=== PATIENT | male | born 1945 | race Hispanic/Latino ===

== ENCOUNTER 2018-04-15 02:58 | Observation (INO) | payer MEDICARE ==
[2018-04-15] VITALS (8 sets, daily range): BP systolic 113–144; BP diastolic 59–82
[~2018-04-15] VITALS: Ht 180.3 cm; Wt 77.6 kg
[~2018-04-15 02:58] MED LIST: ASPIR-LOW81 MG PO; ATORVASTATIN CA20 MG PO; Aspirin PO; LOPRESSOR25 MG PO; PANTOPRAZOLE SO40 MG PO; PEPCID20 MG PO; TYLENOL WITH C1 EACH PO
--- OUTSIDE RECORDS SUMMARY | 2018-04-15 02:59 | XMS REPORT ---
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 Allergies, Adverse Reactions, Alerts This patient has no known allergies or adverse reactions. Medications This patient has no known medications. Results Test Description Test Time Test Comments Text Results Atomic Results Result Comments CHEST [address] [facility] [address] [id number] Patient Name: MITZI GUERRIER MR #: [id number] : 1945 Age/Sex: 71/M Req #: [id number] Adm Physician: OCTAVIO FINN MD Ordered by: ZINA KONG MD Report #: [id number] Location: [facility] Room/Bed: [place] [address] Procedure: [id number] DX/CHEST 2 VIEWS Exam Date: 01/05/17 Exam Time: 1445 REPORT STATUS: Signed PROCEDURE: Frontal and lateral views of the chest. COMPARISON: None. INDICATIONS: CHEST PAIN FINDINGS: Lines/tubes: None. Lungs: The lungs are well inflated. Calcified granulomata in each lung appear stable. There is stable eventration of the left diaphragm with overlying discoid atelectasis. There is no evidence of pneumonia or pulmonary edema. Pleura: There is no pleural effusion or pneumothorax. Heart and mediastinum: The heart and the mediastinum are normal. Bones: No acute bony abnormality. Median sternotomy wires are intact. IMPRESSION: 1. Stable chest. No active disease. Dictated by: Vasu Chino M.D. on 01/05/2017 at 15:26 Electronically approved by: Vasu Chino M.D. on 01/05/2017 at 15:26 Dictated By: VASU CHINO MD [id number] Transcribed By: DALY on 01/05/17 1526 COPY TO: ZINA KONG MD
[2018-04-15] MEDS ORDERED: PANTOPRAZOLE 40 MG 10ML VIAL IV STA (03:13)
[2018-04-15] MEDS ORDERED: ASPIRIN 81 MG CHEW TAB PO ONE (03:15)
[2018-04-15 03:23] LABS: BASOPHILS # (AUTO) 0.1 (0.0-0.1); BASOPHILS % 1.6 % (0.0-1.0); EOSINOPHILS # (AUTO) 0.3 (0.0-0.4); HEMATOCRIT 40.5 % (38.2-49.6); HEMOGLOBIN 12.7 g/dL (14.0-18.0); LYMPHOCYTES # (AUTO) 2.2 (1.0-3.2); LYMPHOCYTES % 26.2 % (18.0-39.1); MEAN CORPUSCULAR HEMOGLOBIN 21.5 pg (28-32); MEAN CORPUSCULAR HGB CONC 31.4 g/dL (31-35); MEAN CORPUSCULAR VOLUME 68.6 fL (81-99); MONOCYTES # (AUTO) 1.1 (0.2-0.8); MONOCYTES % 13.3 % (4.4-11.3); NEUTROPHILS # (AUTO) 4.5 (2.1-6.9); NEUTROPHILS % 54.7 % (38.7-80.0); PLATELET COUNT 198 x10e3/uL (140-360); RED CELL DISTRIBUTION WIDTH 21.9 % (11.7-14.4)
[2018-04-15 03:31] LABS: INR 0.95; PROTHROMBIN TIME 13.6 seconds (11.9-14.5)
[2018-04-15 03:32] LABS: PARTIAL THROMBOPLASTIN TIME 28.3 seconds (23.8-35.5)
[2018-04-15 03:35] LABS: CLARITY,URINE CLEAR (CLEAR); COLOR,URINE YELLOW (YELLOW); KETONES,URINE NEGATIVE (NEGATIVE); LEUKOCYTE ESTERASE ,URINE NEGATIVE (NEGATIVE); NITRITE,URINE NEGATIVE (NEGATIVE); PROTEIN,URINE DIPSTICK NEGATIVE (NEGATIVE); URINE UROBILINOGEN 0.2 mg/dL (0.2 - 1)
[2018-04-15 03:36] LABS: BILIRUBIN,URINE NEGATIVE (NEGATIVE); EPITHELIAL CELLS,URINE FEW /LPF; RBC,URINE 0-5 /HPF (0-5); WBC,URINE (MAN) 0-5 /HPF (0-5)
[2018-04-15 03:39] LABS: ALANINE AMINOTRANSFERASE 37 IU/L (0-55); ALBUMIN 3.8 g/dL (3.5-5.0); ALBUMIN/GLOBULIN RATIO 0.8 (0.8-2.0); ALKALINE PHOSPHATASE 87 IU/L (40-150); AMYLASE 55 U/L (25-125); ANION GAP 17.7 mmol/L (8-16); BLOOD UREA NITROGEN 6 mg/dL (7-26); BUN/CREATININE RATIO 8 (6-25); CALCIUM 9.6 mg/dL (8.4-10.2); CARBON DIOXIDE 20 mmol/L (22-29); CHLORIDE 101 mmol/L (98-107); CREATINE KINASE 76 IU/L (30-200); CREATININE, SERUM 0.79 mg/dL (0.72-1.25); EST GLOMERULAR FILTRATION RATE > 60 ML/MIN (60-); GLUCOSE 90 mg/dL (74-118); LIPASE 114 U/L (8-78); POTASSIUM 3.7 mmol/L (3.5-5.1); SODIUM 135 mmol/L (136-145)
[2018-04-15] MEDS ORDERED: ONDANSETRON HCL INJ 2 MG/ML VIAL IV STA (04:04)
[2018-04-15] MEDS ORDERED: ONDANSETRON HCL INJ 2 MG/ML VIAL ONE (04:06)
[2018-04-15] MEDS ORDERED: HYDROMORPHONE 2MG/ML 2 MG/ML ML ONE ×2 (04:09→09:09)
[2018-04-15] MEDS ORDERED: SODIUM CHLORIDE 0.9% 1000ML 1,000 ML IV ONE (04:15)
[2018-04-15] MEDS ORDERED: HYDROMORPHONE 1MG/1ML INJ IV ONE (04:15)
[2018-04-15] MEDS ORDERED: SODIUM CHLORIDE 0.9% 1000ML 1,000 ML IV SCH (04:17)
--- NOTE | 2018-04-15 04:21 | Diagnostic Imaging Report ---
EXAM: CHEST SINGLE (PORTABLE), AP 1 view INDICATION: Left-sided chest pain COMPARISON: January 05, 2017 FINDINGS: LINES/TUBES: None LUNGS: Bibasilar atelectasis. PLEURA: No effusions or pneumothorax. HEART AND MEDIASTINUM: Normal size and contour. BONES AND SOFT TISSUES: No acute findings. Median sternotomy wires. IMPRESSION: Bibasilar atelectasis. Signed by: Dr. Mimi Batista M.D. on 04/15/2018 4:17 AM
[2018-04-15] MEDS ORDERED: ATORVASTATIN CA20 MG PO (04:22)
[2018-04-15] MEDS ORDERED: HYDROMORPHONE 1MG/1ML INJ IV PRN (04:30)
[2018-04-15] MEDS ORDERED: ONDANSETRON HCL INJ 2 MG/ML VIAL IV PRN (04:30)
[2018-04-15] MEDS ORDERED: CHLORDIAZEPOXIDE HCL 25 MG CAP PO PRN (04:45)
[2018-04-15] MEDS ORDERED: HYDROMORPHONE 2MG/ML 2 MG/ML ML IV PRN ×2 (08:30→08:45)
[2018-04-15] MEDS ORDERED: ASPIRIN 81 MG ENTERIC COATED PO SCH (09:00)
[2018-04-15] MEDS: HYDROMORPHONE 2MG/ML 2 MG/ML ML IV PRN ×2 (09:15→20:50)
[2018-04-15] MEDS: PANTOPRAZOLE 40 MG 10ML VIAL IV SCH (09:15)
--- NOTE | 2018-04-15 09:17 | Diagnostic Imaging Report ---
PROCEDURE:ABDOMINAL ULTRASOUND COMPARISON:None. INDICATIONS:EVAL FOR GALLSTONE, PANCREATITIS FINDINGS: Somewhat limited evaluation due to overlying bowel gas. Liver: Measures 15.7 cm. Increased hepatic parenchymal echogenicity. No focal mass. Main portal vein: Measures 0.8 cm. Hepatopetal flow. Gallbladder: Unremarkable appearance. No evidence of stone, wall thickening, distension, or pericholecystic fluid. Common Bile Duct: Measures 0.3 cm. No echogenic filling defect. Sonographic Gasca's sign: Negative. Right kidney: Measures 10.2 cm. No solid or cystic mass, echogenic calculi, or hydronephrosis. Normal parenchymal echogenicity. Left kidney: Measures 9.6 cm. No solid or cystic mass, echogenic calculi, or hydronephrosis. Normal parenchymal echogenicity. Spleen: Measures 8.3 cm. Pancreas: Limited visualization due to overlying bowel gas. Inferior vena cava: Limited visualization due to overlying bowel gas. Aorta: Limited visualization due to overlying bowel gas. Ascites: None. CONCLUSION: Somewhat limited evaluation due to overlying bowel gas. Hepatic steatosis. No sonographic evidence of cholecystitis. Dictated by: REJI CANCHOLA M.D. on 04/15/2018 at 9:27 Electronically approved by: REJI CANCHOLA M.D. on 04/15/2018 at 9:27
[2018-04-15 09:31] LABS: CREATINE KINASE 54 IU/L (30-200)
--- NOTE | 2018-04-15 10:50 | Diagnostic Imaging Report ---
PROCEDURE: CT ABDOMEN AND PELVIS WITH CONTRAST TECHNIQUE: The abdomen and pelvis were scanned utilizing a multidetector helical scanner from the diaphragm to the lesser trochanter after the IV administration of 100 cc of Isovue 370 and the oral administration of water. Coronal and sagittal multiplanar reformations were obtained. COMPARISON: CTA Abdomen/Pelvis 10/06/15 (report available but the images were not available for review at the time of this dictation); Abdominal ultrasound 04/15/18. INDICATIONS: EPIGASTRIC PAIN FINDINGS: LOWER THORAX: Patchy multifocal atelectatic changes. Small cysts at the lung bases. Patchy consolidative opacity in the left lower lobe. Extensive coronary atherosclerosis. Epicardial pacer leads are partially seen. Calcified pleural plaques. Diffuse opacities limit evaluation for lung nodules. HEPATOBILIARY: Mild diffuse fatty liver. Subcentimeter left hepatic lobe hypo densities are too small to characterize but likely represent cysts. No biliary ductal dilatation. SPLEEN: No splenomegaly. PANCREAS: No focal masses or ductal dilatation. ADRENALS: No adrenal nodules. KIDNEYS/URETERS: No hydronephrosis, stones, or solid mass lesions. A 9 mm left upper pole hypodensity and additional left punctate renal hypodensity are too small to characterize, but likely represent cysts. PELVIC ORGANS/BLADDER: Prostate is enlarged measuring up to 4.8 cm. PERITONEUM / RETROPERITONEUM: Small amount of pelvic ascites. No free air. LYMPH NODES: VESSELS: Extensive atherosclerotic changes of the abdominal aorta and branch vessels. GI TRACT: No distention or wall thickening. Normal appendix. Mildly prominent mid small bowel loops measuring up to 2.9 cm without specific evidence of bowel obstruction. BONES AND SOFT TISSUES: Degenerative changes of the visualized spine without evidence of acute bony abnormality. Bilateral pars defects at L5 with minimal anterolisthesis of L5 on S1. IMPRESSION: Mild fatty liver. Mildly prominent small bowel loops in the lower abdomen measuring up to 2.9 cm without specific evidence of bowel obstruction. Small amount of pelvic ascites. Dictated by: REJI CANCHOLA M.D. on 04/15/2018 at 11:00 Electronically approved by: REJI CANCHOLA M.D. on 04/15/2018 at 11:00
[2018-04-15] MEDS: METOPROLOL TARTRATE 25 MG TAB PO SCH (16:24)
[2018-04-15] MEDS: PANTOPRAZOLE SOD 40 MG TABEC PO SCH (16:24)
[2018-04-15] MEDS: DONNATAL/LIDOCAINE/MAALOX 30 ML SUSP PO PRN ×2 (16:25→20:35)
[2018-04-15] MEDS: SUCRALFATE 1 GM/10 ML SUSP NG SCH ×2 (16:25→20:35)
--- NOTE | 2018-04-15 16:38 | History and Physical ---
CHIEF COMPLAINT: Abdominal pain. HISTORY OF PRESENT ILLNESS: This is a 73-year-old male with known chronic alcohol abuse who, of note, was here back in December 2016. He also has a past medical history of hypertension, anxiety, acid reflux and gastric ulcers, and esophagitis who presents with complaints of abdominal pain and questionable chest pain. Patient was seen and evaluated at bedside on the medical floor. Currently, he is complaining of epigastric abdominal pain. Imaging studies were found to be negative. His troponins were negative. Patient likely has underlying gastritis. He reports more of a stabbing, sharp sensation around his incision where he had a CABG several years ago. Patient denies any hallucinations, visual or auditory. The patient is currently doing well with no other complaints. REVIEW OF SYSTEMS: Pertinent positives are epigastric abdominal pain, atypical chest pain. Pertinent negatives: Denies any palpitations, nausea or pertinent positive epigastric abdominal pain atypical chest x-ray negative. Denies any palpitations, nausea, vomiting, diarrhea, dysuria, hematuria, frequency, urgency, lightheadedness, dizziness, headaches, shortness of breath, cough, congestion, fever or any other complaints. The rest of the 14-point review of systems have been reviewed with the patient and are negative. ALLERGIES: NO KNOWN DRUG ALLERGIES. HOME MEDICATIONS: 1. Tylenol No. 3with codeine 1 tablet q.8 h. as needed for pain. 2. Aspirin 81mg daily. 3. Lipitor 40 mg daily. 4. Pepcid 20 mg b.i.d. 5. Metoprolol 25 mg b.i.d. 6. Protonix 40 mg daily. PAST MEDICAL HISTORY: Chronic alcohol abuse, anxiety, gastritis, hyperlipidemia, esophagitis, hypertension, CAD. PAST SURGICAL HISTORY: Umbilical hernia repair, open heart surgery. FAMILY HISTORY: Hypertension and diabetes. SOCIAL HISTORY: He is a drinker of 6 pack of beer per day. He is a smoker for 20% years. VITAL SIGNS: Temperature 97.8, pulse 93, respiratory rate 18, blood pressure 121/66. LABORATORY DATA: Labs shows white count 8.3, hemoglobin 12.7, hematocrit 40, platelets 198,000. Coagulation: PT 13, INR 0.95, PTT 28. Chemistry: Sodium 135, potassium 3.7, chloride 101, bicarb 20, anion gap 17, BUN 6, creatinine 0.79. Glucose 90, calcium 9.6, total bilirubin 0.78, AST 48, ALT 37, CK 76. CK-MB is 1.6. Troponin negative times 2. ____ is 0.3. Albumin 2.8. Lipase is 114, amylase 55. Urinalysis found to be negative. MICROBIOLOGY: None. IMAGING: Chest x-ray was negative. Abdominal ultrasound showed evidence of hepatic steatosis, but no evidence of cholecystitis and abdominal CT of the abdomen and pelvis shows mildly prominent small bowel lesions in the lower abdomen measuring up to 2.9 cm without specific evidence of bowel obstruction. Small amount of pelvis ascites. Mild fatty liver. PHYSICAL EXAMINATION: GENERAL: In no acute distress, alert and oriented x3, cooperative on examination. HEENT: Head is normocephalic, atraumatic. Eyes: Pupils equal, round and reactive to light bilaterally. Extraocular movements intact bilaterally. Throat with no evidence of erythema or exudates in the posterior pharynx. Has poor dentition. NECK: Supple with good range of motion. PULMONARY: Clear to auscultation bilaterally. No wheezing, no rales, no rhonchi or crackles appreciated. CARDIOVASCULAR: Positive S1 and S2, no murmurs, rubs or gallops appreciated. ABDOMEN: Soft, nondistended, nontender on palpation. Bowel sounds were present. MUSCULOSKELETAL: Strength 5/5 throughout, no evidence of musculoskeletal deficit on exam. No weakness appreciated. NEUROLOGIC: Cranial nerves II-XII grossly intact. No evidence of neurological deficit on examination. SKIN: Intact. Warm to touch. Good capillary refill. EXTREMITIES: No edema. Good range of motion throughout. PSYCHIATRIC: Normal affect and mood. IMPRESSION 1. Epigastric abdominal pain likely secondary to chronic alcohol abuse leading to esophagitis and gastritis. 2. Chronic alcohol abuse. 3. Hypertension. 4. History of CABG with coronary artery bypass graft in the past. 5. Anemia. 6. Hyperlipidemia. PLAN: At this time his troponins are negative. EKG showed no acute findings. It is likely that the patient has epigastric abdominal pain due to his chronic alcohol abuse leading to underlying gastritis and esophagitis. On reviewing his EKG, there are similar findings and there is nothing acute based on his EKG. No alarms on cardiac telemetry. This is unlikely to be cardiac in its nature, atypical in nature. At this time, will give him some GI cocktail, some Protonix and Carafate for his underlying epigastric pain. Imaging studies were found to be negative including right upper quadrant ultrasound and CT of the abdomen and pelvis. His labs seem to be normal. Will continue with same plan of care. Repeat labs in the morning. I will go ahead and discontinue the IV fluids. Continue with regular diet. If he is stable, doing well, will likely discharge home tomorrow. Otherwise, he should be ready to go home tomorrow with no issues. Patient will be placed on observation, and will change it from inpatient. Job#: [id number] PRATEEK
--- NOTE | 2018-04-15 17:01 | Consultation ---
DATE OF CONSULTATION: April 15, 2018 CARDIOLOGY CONSULTATION REASON FOR CONSULTATION: Chest pain. HISTORY OF PRESENT ILLNESS: This is a 73-year-old man with history of coronary artery disease status post aortocoronary bypass, hypertension, alcohol use, gastritis, chronic dyspepsia, hiatal hernia and hyperlipidemia who presented to the emergency department with chest and epigastric pain. The patient denies any exertional symptoms. The symptoms can be moderate in intensity, worse with movement and palpation of the abdomen. The patient has had prior stress test and echocardiogram, which were within normal limits. He, otherwise, is asymptomatic from a cardiovascular standpoint. REVIEW OF SYSTEMS: A 12-point review of systems was conducted and was negative other than that in the HPI. PAST MEDICAL HISTORY: As stated above in the HPI. PAST SURGICAL HISTORY: Aortocoronary bypass. FAMILY HISTORY: No premature coronary artery disease or sudden cardiac . SOCIAL HISTORY: Current drinker. ALLERGIES: NO KNOWN DRUG ALLERGIES. MEDICATIONS: See medication reconciliation form. PHYSICAL EXAMINATION VITAL SIGNS: Temperature 97.8, heart rate 96, respirations 20, blood pressure 121/66, oxygen saturation 98% on room air. GENERAL: He is an elderly man lying in bed. HEAD: Normocephalic and atraumatic. EYES: The extraocular muscles are intact. Conjunctivae are clear. NECK: No JVD. No bruits. CARDIOVASCULAR: Regular rate and rhythm. No murmurs. LUNGS: Clear to auscultation. ABDOMEN: Soft. Tender to palpation. EXTREMITIES: No edema. VASCULAR: Diminished pulses. SKIN: Warm, dry and intact. NEUROLOGIC: No focal deficits noted. LABORATORY DATA: All reviewed and notable for white blood cell count of 8, hemoglobin 12.7, creatinine 0.79. Troponins are negative times [address] is [address] of the abdomen shows mildly prominent small-bowel loops, small amount of pelvic ascites, mild fatty liver. IMPRESSION AND RECOMMENDATIONS: Precordial pain. The patient has ruled out for acute myocardial infarction with normal cardiac enzymes. His symptoms are reproducible on examination and are more epigastric. The patient likely has pancreatitis with mildly elevated lipase. Would treat his gastritis as well. The patient's recent stress test and echocardiogram were within normal limits at our facility. The patient will need further testing; however, this can be done as an outpatient. Thank you for the consultation. ZANA RED D.O. Job#: [id number] AMANDEEP
[2018-04-15 18:08] LABS: CREATINE KINASE MB 1.5 ng/mL (0-5.0)
[2018-04-15] MEDS ORDERED: SODIUM CHLORIDE 0.9% 50ML 50 ML ONE (20:42)
[2018-04-15] MEDS ORDERED: IOPAMIDOL 370 MG/ML 200 ML INFUS..BTL INJ ONE (20:42)
[2018-04-15] MEDS ORDERED: ATORVASTATIN 40 MG TAB PO SCH (21:00)
[2018-04-15] MEDS ORDERED: ATORVASTATIN 20 MG TAB PO SCH (21:00)
[2018-04-16] VITALS: BP 118/59
[2018-04-16] MEDS: METOPROLOL TARTRATE 25 MG TAB PO SCH (03:51)
[2018-04-16 04:00] VITALS: BP 103/58
[2018-04-16 05:37] LABS: BASOPHILS # (AUTO) 0.1 (0.0-0.1); BASOPHILS % 1.6 % (0.0-1.0); EOSINOPHILS # (AUTO) 0.2 (0.0-0.4); EOSINOPHILS % 3.3 % (0.0-6.0); HEMATOCRIT 32.8 % (38.2-49.6); HEMOGLOBIN 10.1 g/dL (14.0-18.0); LYMPHOCYTES # (AUTO) 1.1 (1.0-3.2); LYMPHOCYTES % 23.3 % (18.0-39.1); MEAN CORPUSCULAR HEMOGLOBIN 21.5 pg (28-32); MEAN CORPUSCULAR HGB CONC 30.8 g/dL (31-35); MEAN CORPUSCULAR VOLUME 69.9 fL (81-99); MONOCYTES # (AUTO) 0.9 (0.2-0.8); NEUTROPHILS # (AUTO) 2.6 (2.1-6.9); NEUTROPHILS % 53.6 % (38.7-80.0); PLATELET COUNT 166 x10e3/uL (140-360); RED BLOOD COUNT 4.69 x10e6/uL (4.3-5.7); RED CELL DISTRIBUTION WIDTH 21.4 % (11.7-14.4)
[2018-04-16 05:58] LABS: ALANINE AMINOTRANSFERASE 23 IU/L (0-55); ALBUMIN 2.8 g/dL (3.5-5.0); ALBUMIN/GLOBULIN RATIO 0.9 (0.8-2.0); ALKALINE PHOSPHATASE 65 IU/L (40-150); AMYLASE 33 U/L (25-125); ANION GAP 9.5 mmol/L (8-16); BLOOD UREA NITROGEN 7 mg/dL (7-26); BUN/CREATININE RATIO 9 (6-25); CALCIUM 8.3 mg/dL (8.4-10.2); CARBON DIOXIDE 27 mmol/L (22-29); CHLORIDE 98 mmol/L (98-107); EST GLOMERULAR FILTRATION RATE > 60 ML/MIN (60-); GLUCOSE 88 mg/dL (74-118); LIPASE 45 U/L (8-78); POTASSIUM 3.5 mmol/L (3.5-5.1); SODIUM 131 mmol/L (136-145)
[2018-04-16] MEDS: PANTOPRAZOLE SOD 40 MG TABEC PO SCH (06:38)
[2018-04-16] MEDS: SUCRALFATE 1 GM/10 ML SUSP NG SCH ×2 (06:38→13:52)
[2018-04-16 08:18] VITALS: BP 108/70
[2018-04-16] MEDS: PANTOPRAZOLE 40 MG 10ML VIAL IV SCH (08:36)
[2018-04-16 08:40] VITALS: BP 108/70
[2018-04-16] MEDS ORDERED: ASPIRIN 81 MG CHEW TAB PO SCH (09:00)
[2018-04-16 12:03] VITALS: BP 105/59
[2018-04-16] MEDS: DONNATAL/LIDOCAINE/MAALOX 30 ML SUSP PO PRN (13:52)
[2018-04-16] MEDS ORDERED: CARAFATE1 GM/10 ML PO (14:41)
[2018-04-16] MEDS ORDERED: PANTOPRAZOLE SO40 MG PO (14:41)
--- NOTE | 2018-04-16 16:19 | Discharge Summary ---
FINAL DISCHARGE DIAGNOSES 1. Atypical chest pain. 2. Epigastric abdominal pain secondary to chronic alcohol abuse likely to be esophagitis and gastritis, now improved. 3. Chronic alcohol abuse. 4. Hypertension. 5. History of coronary artery bypass graft. 6. Anemia. 7. Hyperlipidemia. ZINC ETCHER: Cardiology. VITAL SIGNS: Temperature is 97.5, pulse 80, respiratory rate 18, blood pressure 105/59, pulse ox 98% on room air. LAB FINDINGS: White count 4.8, hemoglobin 10.1, hematocrit 32. MCV 69. Platelets 166. Chemistries: Sodium 131, potassium 3.5, chloride 98, bicarb 27, anion gap 9.5, BUN 10, creatinine 0.8, calcium 8.3. Total bilirubin is 0.9, AST 26, ALT 23, amylase 33, lipase 45. Coagulations are normal. Urinalysis was negative. IMAGING STUDIES: Chest x-ray: Bibasilar atelectasis. Abdominal ultrasound showed just overlying gas pattern and evidence of hepatic steatosis but no evidence of cholecystitis. CT abdomen and pelvis showed mild fatty liver. Mildly prominent small-bowel loops in the lower abdomen measuring up to 2.9 cm without specific evidence of bowel obstruction. Small amount of pelvic ascites. HOSPITAL COURSE: This is a 73-year-old male who came into the ED with complaints of epigastric abdominal pain with referred pain to the chest wall. Patient had negative cardiac enzymes. EKG showed no acute findings, and there were no alarms on cardiac telemetry. Cardiology was consulted. This was likely to be atypical in nature per cardiology, and he was cleared for discharge home. His cardiac enzymes were negative times 3. Patient was treated for underlying esophagitis and gastritis with a GI cocktail and Carafate as well as Protonix. Patient improved with no complaints. He was discharged on Protonix and Carafate as well. Patient was tolerating diet well with no other complaints. On the day of discharge, vital signs were stable. Labs were reviewed and stable. The patient was seen and evaluated and examined thoroughly on the day of discharge with no other complaints. The patient verbalized an understanding and agreed with the plan of care to follow up with pulmonary as an outpatient and with primary care physician in 1 week. DISCHARGE MEDICATIONS: See medication reconciliation form. DISPOSITION: To home. CONDITION: Stable. DIET: Heart healthy. In the event of any worsening symptoms, the patient was advised to come back to the ED for further evaluation. The discharge summary took greater than 35 minutes. CHANDRIKA JOHNSON MD Job#: [id number]
== END 2018-04-16 16:20 | disposition home or self-care (01) ==
LOC: ER 02:58 → INTOOBSV 04:17 → ERHOLD 04:17 → MED/SURG3 04:51
PROVIDERS: ADMIT Internal Medicine; ATTEND Internal Medicine
DX: R07.89 Other chest pain (principal); R10.13 Epigastric pain; F10.10 Alcohol abuse, uncomplicated; I10 Essential (primary) hypertension; I25.10 Atherosclerotic heart disease of native coronary artery without angina pectoris; Z95.1 Presence of aortocoronary bypass graft; D64.9 Anemia, unspecified; E78.5 Hyperlipidemia, unspecified; K29.70 Gastritis, unspecified, without bleeding; K20.9 Esophagitis, unspecified; K44.9 Diaphragmatic hernia without obstruction or gangrene; R07.2 Precordial pain
CPT/HCPCS: 36415 ×2; 71045; 74177; 76700; 80053 ×2; 81001; 82150 ×2; 82550; 82553; 83690 ×2; 84484; 85025 ×2; 85610; 85730; 93005; 96361; 99284; G0378 ×2; J1170; J2405; J7030; Q9967; S0164 ×2; 96360

== ENCOUNTER 2018-10-09 02:13 | Observation (INO) | payer MEDICARE ==
[~2018-10-09] VITALS: Ht 177.8 cm; Wt 80.7 kg
[~2018-10-09 02:13] MED LIST changes: +CARAFATE1 GM/10 ML PO
[2018-10-09] MEDS ORDERED: SODIUM CHLORIDE 0.9% 500ML 500 ML IV STA (02:18)
[2018-10-09] MEDS ORDERED: NITROGLYCERIN 2% OINT 1 GM PKT TOP ONE (02:30)
[2018-10-09] MEDS ORDERED: ASPIRIN 81 MG CHEW TAB PO ONE (02:30)
[2018-10-09] MEDS ORDERED: FAMOTIDINE 20 MG/2 ML VIAL IV ONE (02:30)
[2018-10-09] MEDS: ONDANSETRON HCL INJ 2MG/ML 2ML 2 MG/ML VIAL IV PRN ×3 (02:47→20:17)
[2018-10-09 02:53] LABS: BASOPHILS # (AUTO) 0.2 (0.0-0.1); BASOPHILS % 3.1 % (0.0-1.0); EOSINOPHILS # (AUTO) 0.2 (0.0-0.4); EOSINOPHILS % 3.1 % (0.0-6.0); HEMATOCRIT 31.2 % (38.2-49.6); HEMOGLOBIN 10.1 g/dL (14.0-18.0); LYMPHOCYTES # (AUTO) 1.5 (1.0-3.2); LYMPHOCYTES % 30.5 % (18.0-39.1); MEAN CORPUSCULAR HEMOGLOBIN 20.7 pg (28-32); MEAN CORPUSCULAR HGB CONC 32.4 g/dL (31-35); MEAN CORPUSCULAR VOLUME 63.8 fL (81-99); MONOCYTES # (AUTO) 0.7 (0.2-0.8); MONOCYTES % 15.2 % (4.4-11.3); NEUTROPHILS # (AUTO) 2.3 (2.1-6.9); NEUTROPHILS % 47.9 % (38.7-80.0); PLATELET COUNT 187 x10e3/uL (140-360); RED BLOOD COUNT 4.89 x10e6/uL (4.3-5.7)
[2018-10-09] MEDS ORDERED: LOPRESSOR25 MG PO (03:00)
[2018-10-09] MEDS ORDERED: ATORVASTATIN CA40 MG PO (03:00)
[2018-10-09] MEDS ORDERED: PANTOPRAZOLE SO40 MG PO (03:00)
[2018-10-09] MEDS ORDERED: ASPIRIN EC81 MG PO (03:00)
--- NOTE | 2018-10-09 03:09 | Diagnostic Imaging Report ---
Examination: Single AP view of the chest. COMPARISON: Portable chest 04/15/2018 and chest 2 views 01/05/2017 INDICATION: Trouble breathing, chest pain IMPRESSION: 1. Lines and Tubes: None 2. Lungs are well-inflated. Patchy bibasilar atelectatic changes, left greater than right. No consolidation. Bilateral calcific densities, some of which are curvilinear/linear, which may represent pleural calcifications, and are stable. Stable eventration of the left hemidiaphragm. 3. Cardiomediastinal silhouette is normal. Mild central pulmonary venous congestion. 4. No acute bony abnormalities. Midline sternotomy wires. Signed by: Dr. Leonard Mario M.D. on 10/09/2018 3:06 AM
[2018-10-09 03:12] LABS: ALANINE AMINOTRANSFERASE 73 IU/L (0-55); ALBUMIN 3.5 g/dL (3.5-5.0); ALBUMIN/GLOBULIN RATIO 0.9 (0.8-2.0); ALKALINE PHOSPHATASE 86 IU/L (40-150); BLOOD UREA NITROGEN < 5 mg/dL (7-26); CALCIUM 8.8 mg/dL (8.4-10.2); CARBON DIOXIDE 24 mmol/L (22-29); CHLORIDE 97 mmol/L (98-107); CREATINE KINASE 109 IU/L (30-200); CREATININE, SERUM 0.77 mg/dL (0.72-1.25); EST GLOMERULAR FILTRATION RATE > 60 ML/MIN (60-); GLUCOSE 83 mg/dL (74-118); LIPASE 105 U/L (8-78); SODIUM 132 mmol/L (136-145)
[2018-10-09 03:14] LABS: BUN/CREATININE RATIO 6 (6-25)
[2018-10-09] MEDS ORDERED: CLONIDINE HCL 0.1 MG TAB PO PRN (03:45)
[2018-10-09] MEDS ORDERED: DIPHENHYDRAMINE HCL INJ 50 MG/ML VIAL IV PRN (03:45)
[2018-10-09] MEDS ORDERED: ENALAPRILAT IV INJ 1.25 MG/ML VIAL IV PRN (03:45)
[2018-10-09] MEDS ORDERED: ACETAMINOPHEN 325 MG TAB PO PRN (03:45)
[2018-10-09] MEDS ORDERED: ENOXAPARIN INJ 80 MG/0.8 ML SYR SC ONE (03:45)
[2018-10-09] MEDS ORDERED: ZOLPIDEM TARTRATE 5 MG TAB PO PRN (03:45)
[2018-10-09] MEDS: LACTATED RINGER'S 1,000 ML IV SCH ×2 (03:56→18:28)
--- NOTE | 2018-10-09 07:19 | NUR ---
H&P cc: chest discomfort and Sob HPI: 73yoM, PCP Dr Peña, developed chest discomfort and SOB. Pt has been consuming excess alcohol. PMH: alcoholism, GERD, PUD, HTN, anxiety d/o, Esophagitis, CAD, Atypical chest pain, HLD, former smoker PAST SURGICAL HISTORY: Umbilical hernia repair, open heart surgery. Allergies; see emr FAMILY HISTORY: Hypertension and diabetes. SH: alcoholism; 7 beers every other day; remote cigs Meds; see MAR ROS: no f/c/s/n/v/d/ROBERTO/vision changes/skin rash/back pain v/s revd PE tired appearing anicteric ns1s2 mod bs soft TENDER EPIGASTRIUM CHEST WALL TENDER no e/t skin dry flat affect a&ox3; myers labs/med; revd A/P: 73yoM Alcoholism GERD Atypical chest pain HTN HLD Anxiety d/o PUD Hx Esophagitis CAD former smoker PLAN obtain cardiac enzyme ppi check etoh level xanax scd/ppi d/c planning; Gian Francis MD, PhD.
--- NOTE | 2018-10-09 07:29 | NUR ---
PT STATES HE WANTS TO LEAVE AGAINST MEDICAL ADVICE; NURSE INFORMS MD AND CHARGE NURSE OF PT REQUEST; CHARGE NURSE SPOKE WITH PT TO ASK WHY HE WANTED TO LEAVE PT STATES HE IS IN PAIN AND COULD NOT WAIT FOR PAIN MEDS; NURSE TOLD HE NEEDED TIME TO GO THROUGH PT ORDERS AND SPEAK ADMITTING DR AND THAT THE NURSE NEEDED TIME TO DO ALL OF THIS PT STATES HE COULDN'T WAIT CHARGE NURSE INFORMS PT OF RISKS OF LEAVING AMA AND BENEFITS OF STAYING IN THE HOSP; PT STATES HE WILL STAY FOR NOW PT IS ALERT AND ORIENTED X 3
[2018-10-09] MEDS: MORPHINE SULFATE INJ 4 MG/ML INJ 1ML IV PRN ×2 (07:47→20:17)
[2018-10-09] MEDS: METOPROLOL TARTRATE 25 MG TAB PO SCH ×2 (08:08→17:06)
[2018-10-09] MEDS: PANTOPRAZOLE SOD 40 MG TABEC PO SCH (08:08)
[2018-10-09] MEDS: ASPIRIN 81 MG ENTERIC COATED PO SCH (08:08)
[2018-10-09] MEDS: ASPIRIN 325 MG TAB EC PO SCH (08:08)
[2018-10-09] MEDS ORDERED: FAMOTIDINE 20 MG/2 ML VIAL IV SCH (09:00)
[2018-10-09 11:06] LABS: CREATINE KINASE 73 IU/L (30-200)
[2018-10-09 11:07] LABS: CHOL/HDL RATIO 1.4 (3.9-4.7)
--- NOTE | 2018-10-09 12:05 | NUR ---
PT RESTING COMFORTABLY IN BED DENIES ANY COMPLAINTS AT THIS TIME
[2018-10-09 15:09] VITALS: BP 134/80
[2018-10-09 17:00] VITALS: BP 134/80
[2018-10-09 19:52] LABS: CREATINE KINASE MB 0.9 ng/mL (0-5.0)
[2018-10-09] MEDS: ATORVASTATIN 40 MG TAB PO SCH (20:17)
[2018-10-09 20:18] VITALS: BP 127/72
[2018-10-10] VITALS (9 sets, daily range): BP systolic 111–146; BP diastolic 62–83
[2018-10-10] MEDS: MORPHINE SULFATE INJ 4 MG/ML INJ 1ML IV PRN ×2 (01:52→20:33)
--- NOTE | 2018-10-10 06:14 | NUR ---
Discharge summary Principal dx: Alcoholism Musculoskeletal chest pain GERD Secondary dx: GERD HTN HLD Anxiety d/o PUD Hx Esophagitis CAD former smoker PLAN obtain cardiac enzyme ppi check etoh level xanax scd/ppi d/c planning; cardiac enzymes negative; LDl 19. Treat musculoskeletal cp. d/c home d/c home f/u pcp 1 week and alcoholics anonymous for assistance stable d/c>35mins Gian Francis MD, PhD.
[2018-10-10] MEDS ORDERED: MELOXICAM7.5 MG PO (06:16)
--- NOTE | 2018-10-10 06:31 | NUR ---
The patient is laying in bed, respirations are even and unlabored. He is in no apparent distress. HOB elevated, bed low, wheels locked and call light within reach. RIGHT IV patent and saline locked. Patient NPO for Stress test/echo. will continue monitoring.
[2018-10-10] MEDS: MELOXICAM 7.5 MG TAB PO SCH (08:16)
[2018-10-10] MEDS: ASPIRIN 325 MG TAB EC PO SCH (08:16)
[2018-10-10] MEDS: METOPROLOL TARTRATE 25 MG TAB PO SCH ×2 (08:16→17:52)
[2018-10-10] MEDS: ASPIRIN 81 MG ENTERIC COATED PO SCH (08:16)
[2018-10-10] MEDS: PANTOPRAZOLE SOD 40 MG TABEC PO SCH (08:17)
[2018-10-10] MEDS ORDERED: REGADENOSON 0.4 MG/5 ML SYR IV ONE (10:49)
--- NOTE | 2018-10-10 14:19 | NUR ---
patient up in bed eating lunch back from stress test, denies any pain, not in any distress
--- NOTE | 2018-10-10 15:50 | NUR ---
Paged Dr Shelbie Samuels regarding clearance from Stress Test result before to discharge
--- NOTE | 2018-10-10 15:54 | Consultation ---
DATE OF CONSULTATION: 10/10/2018 Cardiology Consult REASON FOR CONSULT: Chest pain, coronary artery disease. CHIEF COMPLAINT: Chest pain. HISTORY OF PRESENT ILLNESS: The patient is a 73-year-old man with history of CAD status post CABG six years ago, presented with an episode about 20 minutes of substernal chest pain with some diaphoresis that has since resolved and no further episodes since then. Overall does pretty well, able to walk, and perform all his ADLs without any limitations. Does not have any heart failure symptoms. Does not smoke. No diabetes. History of hypertension, hyperlipidemia. REVIEW OF SYSTEMS: As above, otherwise negative. SOCIAL HISTORY: He does not smoke, drink, or abuse drugs. FAMILY HISTORY: History of RI in both father and mother, but at an advanced age. No family history of early CAD or sudden cardiac . OUTPATIENT MEDICATIONS: Reviewed. OBJECTIVE: VITAL SIGNS: Temperature afebrile, pulse 90, respiratory rate 17, saturating 97% on room air. GENERAL: Elderly man, in no acute distress. CARDIOVASCULAR: Regular rate and rhythm. No murmurs, rubs, or gallops. LUNGS: Clear to auscultation bilaterally. ABDOMEN: Soft, nontender, and nondistended. NEURO AND PSYCH: Alert and oriented to person, place, and time. Normal affect. INPATIENT MEDICATIONS: Reviewed. LABORATORY DATA: Reviewed. TELEMETRY DATA: Reviewed, shows normal sinus rhythm. ASSESSMENT: 1. Chest pain. 2. Coronary artery disease status post coronary artery bypass graft surgery. 3. Hypertension. PLAN: Plan for nuclear stress test today. Further recommendations to follow after the results. The patient has already been ruled out for acute RI with serial troponins. MD BOBY Hollingsworth/MODL /[id number]
--- NOTE | 2018-10-10 19:00 | NUR ---
received report from day nurse. day nurse has been unable to get cardiac clearance to discharge patient home. will follow up with wallpaper installer. patient is resting in bed. patient is complaining of a bit of chest discomfort. will medicate with medication. telemetry box is attached to patient. bed is in the lowest position and call dunham is within reach. will continue to monitor patient.
[2018-10-10] MEDS: ONDANSETRON HCL INJ 2MG/ML 2ML 2 MG/ML VIAL IV PRN (20:33)
--- NOTE | 2018-10-10 20:35 | NUR ---
Paged spray gunner for clearance to discharge patient home. Refrigeration Service Inspector is not picking up phone. voicemail left on spray gunner's phone. Attending physician notified of inability to reach spray gunner. attending physician states patient should not be discharged until we have heard from spray gunner.
[2018-10-10] MEDS: ATORVASTATIN 40 MG TAB PO SCH (21:19)
[2018-10-11 00:31] VITALS: BP 143/70
[2018-10-11 04:52] VITALS: BP 135/71
--- NOTE | 2018-10-11 06:56 | NUR ---
report given to day nurse. patient is resting in bed. bed is in lowest position and call dunham is within reach. will continue to monitor patient.
[2018-10-11 08:17] VITALS: BP 129/81
[2018-10-11] MEDS: ASPIRIN 325 MG TAB EC PO SCH (08:40)
[2018-10-11] MEDS: METOPROLOL TARTRATE 25 MG TAB PO SCH (08:40)
[2018-10-11] MEDS: ASPIRIN 81 MG ENTERIC COATED PO SCH (08:40)
[2018-10-11] MEDS: PANTOPRAZOLE SOD 40 MG TABEC PO SCH (08:40)
[2018-10-11] MEDS: MELOXICAM 7.5 MG TAB PO SCH (08:40)
[2018-10-11] MEDS ORDERED: HEPARIN SOD (PORCINE) 1000 UNIT/ML 30ML ONE (08:56)
[2018-10-11] MEDS ORDERED: LIDOCAINE HCL 2% LOCAL 20 ML VIAL ONE (08:56)
[2018-10-11] MEDS ORDERED: FENTANYL CITRATE/PF 100MCG/2 ML INJ ONE (08:56)
[2018-10-11] MEDS ORDERED: MIDAZOLAM HCL 2 MG/2 ML VIAL ONE (08:56)
[2018-10-11] MEDS ORDERED: IOPAMIDOL 370 MG/ML 200 ML INFUS..BTL INJ ONE (08:57)
[2018-10-11] MEDS ORDERED: HEPARIN SOD/SOD CHLORIDE 0 ML ONE (08:57)
[2018-10-11] MEDS ORDERED: SODIUM CHLORIDE 0.9% 1000ML 0 ML ONE (08:57)
[2018-10-11] MEDS ORDERED: NITROGLYCERIN/D5W 200 MCG/ML 0 ML ONE (08:57)
--- NOTE | 2018-10-11 09:11 | NUR ---
patient informed of need for heart cath due to poor results on stress test. he is refusing heart cath and has been clearly informed that leavinf without the procedure has a very high possibility of if he leaves. witness to my conversation was Yanelis PEÑA.
--- NOTE | 2018-10-11 18:16 | Myoview Stress Test ---
DATE OF STUDY: 10/09/2018 17:30:00 Stress Test - Treadmill ONLY INDICATION: Coronary artery disease and angina. PROCEDURES PERFORMED: Lexiscan nuclear stress test. DESCRIPTION OF PROCEDURE: The patient was stressed using 1 minute Lexiscan infusion. Rest and stress Myoview imaging was obtained. Resting electrocardiogram showed sinus rhythm without any other abnormalities. Rest and stress images show fixed defects, which improve slightly with stress on the apex of the inferior wall. Normal contractility of the left ventricle. CONCLUSIONS: 1. Normal Lexiscan nuclear stress test showing mild inferior and apical attenuation artifacts. 2. LV ejection fraction 52%. MD KEIRA Savage/MODL /[id number]
== END 2018-10-11 09:25 | disposition left against medical advice (07) ==
LOC: ER 02:13 → ERHOLD 03:47 → IMCU 14:38
PROVIDERS: ADMIT Internal Medicine; ATTEND Internal Medicine
DX: R07.89 Other chest pain (principal); I11.0 Hypertensive heart disease with heart failure; I50.32 Chronic diastolic (congestive) heart failure; Z95.1 Presence of aortocoronary bypass graft; F10.20 Alcohol dependence, uncomplicated; K21.9 Gastro-esophageal reflux disease without esophagitis; K20.9 Esophagitis, unspecified; Z87.891 Personal history of nicotine dependence; Z83.3 Family history of diabetes mellitus; Z82.49 Family history of ischemic heart disease and other diseases of the circulatory system; F41.9 Anxiety disorder, unspecified; K27.9 Peptic ulcer, site unspecified, unspecified as acute or chronic, without hemorrhage or perforation; I25.10 Atherosclerotic heart disease of native coronary artery without angina pectoris
CPT/HCPCS: 36415; 71045; 78452; 80053; 80061; 80320; 82550; 82553; 83690; 83880; 84484; 85025; 93005; 93017; 93306; 96374; 99284; A9502; G0378 ×3; J1650; J2270 ×2; J2405 ×2; J2785; J7040; J7121; S0164 ×2; J1644; J2001; J2250; J7030; Q9967